=== PATIENT | male | born 1980 | race African-American/Black ===

== ENCOUNTER 2017-05-12 20:42 | Emergency (ER) | payer MEDICAID ==
[~2017-05-12] VITALS: Ht 190.5 cm; Wt 140.1 kg
[~2017-05-12 20:42] MED LIST: FENO48TA5 PO; INDO25CA PO; LISI-170 PO; OMEP20CA14 PO; OXYC-302 PO
[2017-05-12] MEDS ORDERED: ALLO100T30 PO (21:14)
[2017-05-12] MEDS ORDERED: MORPHINE SULFATE 4 MG/ML, 1ML IVPush PRN (21:30)
[2017-05-12] MEDS ORDERED: SODIUM CHLORIDE FLUSH 10ML SYR IVF ONE (21:30)
[2017-05-12] MEDS ORDERED: SODIUM CHLORIDE 0.9% 1,000ML IVBOLUS ONE (21:30)
[2017-05-12] MEDS ORDERED: ONDANSETRON 2MG/ML, 2ML IVPush ONE (21:30)
[2017-05-12] MEDS ORDERED: MORPHINE SULFATE 4 MG/ML, 1ML ONE (21:31)
[2017-05-12] MEDS ORDERED: ONDANSETRON 2MG/ML, 2ML ONE (21:31)
[2017-05-12 22:10] LABS: BLOOD UREA NITROGEN 9 mg/dL (7-18)
[2017-05-12 22:19] VITALS: BP 163/101
== END 2017-05-12 23:48 | disposition home or self-care (01) ==
LOC: ED 23:42
DX: M79.662 Pain in left lower leg (principal); I10 Essential (primary) hypertension
CPT/HCPCS: 36415; 80048; 82040; 84550; 85025; 93971; 96374; 96375; 99285; J2405; J7030